=== PATIENT | male | born 1985 | race African-American/Black ===

== ENCOUNTER 2020-05-17 15:52 | Emergency (ER) | payer OTHER ==
[~2020-05-17] VITALS: Ht 175.2 cm; Wt 72.6 kg
== END 2020-05-17 18:34 | disposition home or self-care (01) ==
LOC: ED 15:52
DX: S16.1XXA Strain of muscle, fascia and tendon at neck level, initial encounter (principal); V89.2XXA Person injured in unspecified motor-vehicle accident, traffic, initial encounter; Y93.89 Activity, other specified; Y92.89 Other specified places as the place of occurrence of the external cause; Y99.8 Other external cause status